=== PATIENT | male | born 1955 | race Caucasian/White ===

== ENCOUNTER 2020-06-07 10:24 | Emergency (ER) | payer SELFPAY ==
[~2020-06-07] VITALS: Ht 177.8 cm; Wt 97.7 kg
[2020-06-07 11:30] LABS: BASO # 0.1 10^3/uL (0.0-0.2); EOS # 0.5 10^3/uL (0.0-0.5); EOS % 6.4 % (0.0-3.0); HEMATOCRIT 42.7 % (42.0-52.0); HEMOGLOBIN 13.4 g/dl (13.5-17.5); LYMPH # 2.2 10^3/uL (1.5-5.0); LYMPH % 30.5 % (24.0-44.0); MEAN CORPUSCULAR HEMOGLOBIN 28.5 pg (27.0-33.0); MEAN CORPUSCULAR HGB CONC 31.4 g/dl (32.0-36.5); MEAN CORPUSCULAR VOLUME 90.7 fl (80.0-96.0); MONO # 0.6 10^3/uL (0.0-0.8); MONO % 7.9 % (2.0-8.0); NEUTROPHILS % 53.8 % (36.0-66.0); PLATELET COUNT, AUTOMATED 189 10^3/uL (150-450); RED BLOOD COUNT 4.71 10^6/uL (4.30-6.10); WHITE BLOOD COUNT 7.3 10^3/uL (4.0-10.0)
[2020-06-07 11:38] LABS: ALBUMIN 3.5 GM/DL (3.2-5.2); ALT/SGPT 31 U/L (12-78); BILIRUBIN,DIRECT 0.1 MG/DL (0.0-0.2); BILIRUBIN,TOTAL 0.2 MG/DL (0.2-1.0); BLOOD UREA NITROGEN 9 MG/DL (7-18); CALCIUM LEVEL 8.1 MG/DL (8.8-10.2); CARBON DIOXIDE LEVEL 27 MEQ/L (21-32); CHLORIDE LEVEL 110 MEQ/L (98-107); CPK CREATINE PHOSPHOKINASE 141 U/L (39-308); CREATININE FOR GFR 0.97 MG/DL (0.70-1.30); GLOMERULAR FILTRATION RATE > 60.0 (>49); GLUCOSE, FASTING 96 MG/DL (70-100); MB/CK RELATIVE INDEX 1.42 (< OR =4); POTASSIUM SERUM 3.7 MEQ/L (3.5-5.1); SODIUM LEVEL 140 MEQ/L (136-145); TOTAL PROTEIN 6.6 GM/DL (6.4-8.2); TROPONIN I < 0.02 NG/ML (< 0.10)
--- NOTE | 2020-06-07 11:39 | REP ---
INDICATION: chest pain COMPARISON: None. TECHNIQUE: Portable AP view of the chest FINDINGS: Mediastinum and cardiac silhouette are within normal limits for portable technique. Lung lorenzo demonstrate chronic appearing interstitial changes along with subtle superimposed right lower lobe infiltrate. Clinical correlation is recommended. No obvious effusion. No pneumothorax. Skeletal structures are intact. IMPRESSION: Chronic appearing changes with superimposed right lower lobe infiltrate/atelectasis suspected. <Electronically signed by Johnathon Pichardo > 06/07/20 1946
--- NOTE | 2020-06-07 12:07 | REP ---
INDICATION: ?RLL infiltrate COMPARISON: None TECHNIQUE: Axial noncontrast images from the thoracic inlet to the upper abdomen with coronal and sagittal reformations. This CT examination was performed using the following dose reduction techniques: Automated exposure control, adjustment of mA and/or kv according to the patient's size, and use of iterative reconstruction technique. FINDINGS: Lung lorenzo demonstrate scattered chronic age-related changes along with very subtle superimposed right basilar atelectasis. No discrete focal consolidation. No effusion. No pneumothorax. Tracheobronchial tree is patent. Mediastinum demonstrates relatively normal thoracic aorta, pulmonary vasculature, and heart/pericardium by noncontrast evaluation. Subtle adenopathy cannot be excluded. Small hiatal hernia. Normal bilateral adrenal glands. Surrounding musculoskeletal structures demonstrate age-related changes without acute osseous abnormality IMPRESSION: Minimal right basilar atelectasis. <Electronically signed by Johnathon Pichardo > 06/07/20 [id number]
[2020-06-07 12:47] VITALS: BP 157/73
--- NOTE | 2020-06-08 14:20 | ECGEPIP ---
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
== END 2020-06-07 13:17 | disposition home or self-care (01) ==
LOC: EDBD 10:24 → M ED 10:24
DX: J70.5 Respiratory conditions due to smoke inhalation (principal); R60.0 Localized edema; I45.10 Unspecified right bundle-branch block; F17.210 Nicotine dependence, cigarettes, uncomplicated